=== PATIENT | female | born 1970 | race Caucasian/White ===

== ENCOUNTER → 2017-03-25 | Outpatient (CLI) | payer OTHER ==
[2017-03-25 09:21] LABS: BASO % 0.6 % (0.0-1.0); EOS # 0.1 10^3/uL (0.0-0.50); EOS % 2.6 % (0.0-3.0); HEMATOCRIT 42.3 % (36.0-47.0); HEMOGLOBIN 14.1 g/dl (12.0-16.0); IMMATURE GRANULOCYTE % 0.2 % (0-0); MEAN CORPUSCULAR HEMOGLOBIN 28.8 pg (27.0-33.0); MEAN CORPUSCULAR HGB CONC 33.3 g/dl (32.0-36.5); MEAN CORPUSCULAR VOLUME 86.3 fl (80.0-96.0); MONO # 0.3 10^3/uL (0.0-0.8); MONO % 5.8 % (0.0-5.0); NEUTROPHILS # 2.2 10^3/uL (1.8-7.7); NEUTROPHILS % 47.8 % (36.0-66.0); PLATELET COUNT, AUTOMATED 245 10^3/uL (150-450); RED CELL DISTRIBUTION WIDTH 13.7 % (11.5-14.5); WHITE BLOOD COUNT 4.7 10^3/uL (4.0-10.0)
[2017-03-25 09:56] LABS: ALBUMIN/GLOBULIN RATIO 1.29 (1.00-1.93); ALKALINE PHOSPHATASE 44 U/L (45-117); ALT/SGPT 18 U/L (12-78); ANION GAP 6 MEQ/L (8-16); AST/SGOT 15 U/L (7-37); BILIRUBIN,TOTAL 1.5 MG/DL (0.2-1.0); BLOOD UREA NITROGEN 12 MG/DL (7-18); CALCIUM LEVEL 8.6 MG/DL (8.5-10.1); CARBON DIOXIDE LEVEL 29 MEQ/L (21-32); CHLORIDE LEVEL 108 MEQ/L (98-107); CHOLESTEROL LEVEL 252 MG/DL (<200); CREATININE FOR GFR 0.75 MG/DL (0.55-1.02); GLOMERULAR FILTRATION RATE > 60.0 (>58); GLUCOSE, FASTING 83 MG/DL (70-100); HDL CHOLESTEROL 75 MG/DL (>40); LDL CHOLESTEROL 150.4 MG/DL (<100); NON-HDL-C 177 MG/DL; POTASSIUM SERUM 4.6 MEQ/L (3.5-5.1); SODIUM LEVEL 143 MEQ/L (136-145); TOTAL PROTEIN 7.1 GM/DL (6.4-8.2); TRIGLYCERIDES LEVEL 133 MG/DL (<150)
== END ==
LOC: M LAB 08:25
DX: I10 Essential (primary) hypertension (principal)
CPT/HCPCS: 84443

== ENCOUNTER → 2017-07-10 | Outpatient (CLI) | payer OTHER | LOC: M WHC 14:02 | DX: Z12.31 Encounter for screening mammogram for malignant neoplasm of breast (principal) | CPT/HCPCS: 77067 ==

== ENCOUNTER → 2017-07-10 | Outpatient (REF) | payer OTHER | LOC: M SFHCWAGY 14:32 | DX: Z12.4 Encounter for screening for malignant neoplasm of cervix (principal) | CPT/HCPCS: G0123 ==

== ENCOUNTER → 2018-04-10 | Outpatient (CLI) | payer OTHER ==
[2018-04-10 09:59] LABS: BASO % 0.8 % (0.0-1.0); EOS # 0.2 10^3/uL (0.0-0.50); HEMATOCRIT 42.6 % (36.0-47.0); LYMPH # 2.2 10^3/uL (1.5-4.5); LYMPH % 44.1 % (24.0-44.0); MEAN CORPUSCULAR HGB CONC 32.9 g/dl (32.0-36.5); MEAN CORPUSCULAR VOLUME 88.2 fl (80.0-96.0); MONO # 0.3 10^3/uL (0.0-0.8); MONO % 5.5 % (0.0-5.0); NEUTROPHILS # 2.4 10^3/uL (1.8-7.7); NEUTROPHILS % 46.4 % (36.0-66.0); PLATELET COUNT, AUTOMATED 243 10^3/uL (150-450); RED BLOOD COUNT 4.83 10^6/uL (4.00-5.40); WHITE BLOOD COUNT 5.1 10^3/uL (4.0-10.0)
[2018-04-10 10:31] LABS: BLOOD UREA NITROGEN 16 MG/DL (7-18); CALCIUM LEVEL 9.1 MG/DL (8.5-10.1); CARBON DIOXIDE LEVEL 29 MEQ/L (21-32); CHLORIDE LEVEL 108 MEQ/L (98-107); CREATININE FOR GFR 0.76 MG/DL (0.55-1.30); GLOMERULAR FILTRATION RATE > 60.0 (>58); GLUCOSE, FASTING 88 MG/DL (70-100); POTASSIUM SERUM 4.7 MEQ/L (3.5-5.1); SODIUM LEVEL 143 MEQ/L (136-145); THYROID STIMULATING HORMONE 0.864 uIU/ML (0.358-3.740)
== END ==
LOC: M LAB 08:26
PROVIDERS: ATTEND Physician Assistant
DX: R63.5 Abnormal weight gain (principal)

== ENCOUNTER → 2018-07-12 | Outpatient (CLI) | payer OTHER ==
--- NOTE | 2018-07-12 14:59 | REPMRS ---
Patient History The patient states she had a clinical breast exam in 06/2018. No known family history of cancer. Digital Woman Screen Mammo: July 12, 2018 - Exam #: [id number] Bilateral CC and MLO view(s) were taken. Technologist: Nevaeh Lopez, Technologist Prior study comparison: July 10, 2017, digital woman screen mammo performed at [facility]. January 03, 2016, digital woman screen mammo performed at [facility]. April 10, 2014, digital woman screen mammo performed at [facility]. FINDINGS: There are scattered fibroglandular densities. There has been no change in the appearance of the mammogram from the prior studies. There is a mild amount of scattered fibroglandular density which is fairly symmetric. There is no interval development of dominant mass, architectural distortion, or clustered microcalcification suggestive of malignancy. 3-D tomosynthesis shows no additional findings. Assessment: BI-RADS/ACR category 1 mammogram. Negative Mammogram. Recommendation Routine screening mammogram of both breasts in 1 year (for women over age 40). This patient's Lifetime Breast Cancer RIsk is estimated at 9.1 %. This mammogram was interpreted with the aid of an FDA-approved computer-aided dectection system. Electronically Signed By: Theo Gr MD 07/12/18 [id number]
== END ==
LOC: M WHC 13:14
PROVIDERS: ATTEND Nurse Practitioner Family
DX: Z12.31 Encounter for screening mammogram for malignant neoplasm of breast (principal)

== ENCOUNTER → 2019-09-14 | Outpatient (CLI) | payer OTHER ==
[2019-09-14 07:20] LABS: BASO % 0.6 % (0.0-1.0); EOS # 0.1 10^3/uL (0.0-0.5); EOS % 2.4 % (0.0-3.0); HEMATOCRIT 42.1 % (36.0-47.0); HEMOGLOBIN 13.9 g/dl (12.0-15.5); LYMPH # 2.4 10^3/uL (1.5-5.0); LYMPH % 45.2 % (24.0-44.0); MEAN CORPUSCULAR HEMOGLOBIN 29.7 pg (27.0-33.0); MONO # 0.3 10^3/uL (0.0-0.8); MONO % 6.4 % (0.0-5.0); NEUTROPHILS # 2.4 10^3/uL (1.5-8.5); NEUTROPHILS % 45.2 % (36.0-66.0); PLATELET COUNT, AUTOMATED 238 10^3/uL (150-450); RED BLOOD COUNT 4.68 10^6/uL (4.00-5.40); WHITE BLOOD COUNT 5.3 10^3/uL (4.0-10.0)
[2019-09-14 07:53] LABS: ALBUMIN 3.9 GM/DL (3.2-5.2); ALT/SGPT 49 U/L (12-78); BILIRUBIN,TOTAL 1.2 MG/DL (0.2-1.0); BLOOD UREA NITROGEN 11 MG/DL (7-18); CALCIUM LEVEL 9.2 MG/DL (8.5-10.1); CARBON DIOXIDE LEVEL 28 MEQ/L (21-32); CHLORIDE LEVEL 108 MEQ/L (98-107); CHOLESTEROL LEVEL 214 MG/DL (<200); CREATININE FOR GFR 0.76 MG/DL (0.55-1.30); FREE T4 0.82 NG/DL (0.76-1.46); GLOMERULAR FILTRATION RATE > 60.0 (>58); GLUCOSE, FASTING 98 MG/DL (70-100); HDL CHOLESTEROL 50 MG/DL (>40); LDL CHOLESTEROL 129 MG/DL (<100); NON-HDL-C 164 MG/DL; POTASSIUM SERUM 4.9 MEQ/L (3.5-5.1); SODIUM LEVEL 140 MEQ/L (136-145); TRIGLYCERIDES LEVEL 177 MG/DL (<150)
[2019-09-14 11:08] LABS: TOTAL 25(OH) VITAMIN D 31.7 NG/ML (30.0-100.0)
== END ==
LOC: M LAB 06:33
PROVIDERS: ATTEND Nurse Practitioner Family
DX: N95.1 Menopausal and female climacteric states (principal)

== ENCOUNTER → 2020-03-30 | Outpatient (CLI) | payer OTHER ==
[~2020-03-30] MED LIST: D3 H10002 PO; FLUO10CA16 PO; LISI10TA4 PO; MIRA3350 PO
== END ==
LOC: M LABSMTC 11:22
PROVIDERS: ATTEND Anesthesiology
DX: Z01.812 Encounter for preprocedural laboratory examination (principal); Z20.822 Contact with and (suspected) exposure to COVID-19

== ENCOUNTER 2020-04-04 08:56 | Day surgery (SDC) | payer OTHER ==
[~2020-04-04] VITALS: Ht 157.5 cm; Wt 76.2 kg
[~2020-04-04 08:56] MED LIST changes: +NS 1,000 ML IV ONE
--- OUTSIDE RECORDS SUMMARY | 2020-04-04 09:03 | CCD ---
Author Author [facility] Organization [facility] Address Unknown Phone Unavailable Care Team Providers Care Arc Welder Name Role Phone Jc Jay MD Unavailable Unavailable Jc Jay MD Unavailable Unavailable Jc Jay MD Unavailable Unavailable Jc Jay MD Unavailable Unavailable Jc Jay MD Unavailable Unavailable Jc Jay MD Unavailable Unavailable Jc Jay MD Unavailable Unavailable Jc Jay MD Unavailable Unavailable Jc Jay MD Unavailable Unavailable Jc Jay MD Unavailable Unavailable Jc Jay MD Unavailable Unavailable Jc Jay MD Unavailable Unavailable Heitner, Jc Corrigan MD Unavailable Unavailable Heitner, Jc Corrigan MD Unavailable Unavailable Heitner, Jc Corrigan MD Unavailable Unavailable Heitner, Jc Corrigan MD Unavailable Unavailable Heitner, Jc Corrigan MD Unavailable Unavailable Heitner, Jc Corrigan MD Unavailable Unavailable Heitner, Jc Corrigan MD Unavailable Unavailable Heitner, Jc Corrigan MD Unavailable Unavailable Heitner, Jc Corrigan MD Unavailable Unavailable Heitner, Jc Corrigan MD Unavailable Unavailable Heitner, Jc Corrigan MD Unavailable Unavailable Heitner, Jc Corrigan MD Unavailable Unavailable Heitner, Jc Corrigan MD Unavailable Unavailable Pleskach, Margarita SIGNALING DESIGN ENGINEER Unavailable Unavailable Pleskach, Margarita SIGNALING DESIGN ENGINEER Unavailable Unavailable Pleskach, Margarita SIGNALING DESIGN ENGINEER Unavailable Unavailable Pleskach, Margarita SIGNALING DESIGN ENGINEER Unavailable Unavailable Pleskach, Margarita SIGNALING DESIGN ENGINEER Unavailable Unavailable Pleskach, Margarita SIGNALING DESIGN ENGINEER Unavailable Unavailable Pleskach, Margarita SIGNALING DESIGN ENGINEER Unavailable Unavailable Pleskach, Margarita SIGNALING DESIGN ENGINEER Unavailable Unavailable Pleskach, Margarita SIGNALING DESIGN ENGINEER Unavailable Unavailable Pleskach, Margarita SIGNALING DESIGN ENGINEER Unavailable Unavailable Pleskach, Margarita SIGNALING DESIGN ENGINEER Unavailable Unavailable Pleskach, Margarita SIGNALING DESIGN ENGINEER Unavailable Unavailable Pleskach, Margarita SIGNALING DESIGN ENGINEER Unavailable Unavailable Pleskach, Margarita SIGNALING DESIGN ENGINEER Unavailable Unavailable Pleskach, Margarita SIGNALING DESIGN ENGINEER Unavailable Unavailable Pleskach, Margarita SIGNALING DESIGN ENGINEER Unavailable Unavailable Pleskach, Margarita SIGNALING DESIGN ENGINEER Unavailable Unavailable Pleskach, Margarita SIGNALING DESIGN ENGINEER Unavailable Unavailable Pleskach, Margarita SIGNALING DESIGN ENGINEER Unavailable Unavailable Pleskach, Margarita SIGNALING DESIGN ENGINEER Unavailable Unavailable Pleskach, Margarita SIGNALING DESIGN ENGINEER Unavailable Unavailable Pleskach, Margarita SIGNALING DESIGN ENGINEER Unavailable Unavailable Pleskach, Margarita SIGNALING DESIGN ENGINEER Unavailable Unavailable Pleskach, Margarita SIGNALING DESIGN ENGINEER Unavailable Unavailable Pleskach, Margarita SIGNALING DESIGN ENGINEER Unavailable Unavailable Pleskach, Margarita SIGNALING DESIGN ENGINEER Unavailable Unavailable Pleskach, Margarita SIGNALING DESIGN ENGINEER Unavailable Unavailable Pleskach, Margarita SIGNALING DESIGN ENGINEER Unavailable Unavailable Pleskach, Margarita SIGNALING DESIGN ENGINEER Unavailable Unavailable Petrancosta, Delta Codi PA-C Unavailable Unavailabl e Petrancosta, Delta Codi PA-C Unavailable Unavailabl e Petrancosta, Delta Codi PA-C Unavailable Unavailabl e Petrancosta, Delta Codi PA-C Unavailable Unavailabl e Petrancosta, Delta Codi PA-C Unavailable Unavailabl e Petrancosta, Juarez Codi PA-C Unavailable Unavailabl e Petrancosta, Juarez Codi PA-C Unavailable Unavailabl e Petrancosta, Delta Codi PA-C Unavailable Unavailabl e Petrancosta, Delta Codi PA-C Unavailable Unavailabl e Petrancosta, Delta Codi PA-C Unavailable Unavailabl e Petrancosta, Delta Codi PA-C Unavailable Unavailabl e Petrancosta, Delta Codi PA-C Unavailable Unavailabl e Petrancosta, Delta Codi PA-C Unavailable Unavailabl e Petrancosta, Delta Codi PA-C Unavailable Unavailabl e Petrancosta, Delta Codi PA-C Unavailable Unavailabl e Petrancosta, Delta Codi PA-C Unavailable Unavailabl e Petrancosta, Delta Codi PA-C Unavailable Unavailabl e Petrancosta, Delta Codi PA-C Unavailable Unavailabl e Petrancosta, Juarez Codi PA-C Unavailable Unavailabl e Petrancosta, Juarez Codi PA-C Unavailable Unavailabl e Petrancosta, Juarez Codi PA-C Unavailable Unavailabl e Petrancosta, Juarez Codi PA-C Unavailable Unavailabl e Petrancosta, Juarez Codi PA-C Unavailable Unavailabl e Re-disclosure Warning The records that you are about to access may contain information from federally-assisted alcohol or drug abuse programs. If such information is present, then the following federally mandated warning applies: This information has been disclosed to you from records protected by federal confidentiality rules (42 CFR part 2). The federal rules prohibit you from making any further disclosure of this information unless further disclosure is expressly permitted by the written consent of the person to whom it pertains or as otherwise permitted by 42 CFR part 2. A general authorization for the release of medical or other information is NOT sufficient for this purpose. The Federal rules restrict any use of the information to criminally investigate or prosecute any alcohol or drug abuse patient.The records that you are about to access may contain highly sensitive health information, the redisclosure of which is protected by Article 27-F of the [facility] Public Health law. If you continue you may have access to information: Regarding HIV / AIDS; Provided by facilities licensed or operated by the [facility] Office of Mental Health; or Provided by the [facility] Office for People With Developmental Disabilities. If such information is present, then the following [facility] mandated warning applies: This information has been disclosed to you from confidential records which are protected by state law. State law prohibits you from making any further disclosure of this information without the specific written consent of the person to whom it pertains, or as otherwise permitted by law. Any unauthorized further disclosure in violation of state law may result in a fine or senior care sentence or both. A general authorization for the release of medical or other information is NOT sufficient authorization for further disc losure. Family History Family Member Name Family Member Gender Family Member Status Date o f Status Description Data Source(s) Unknown Unknown Problem [facility] ([facility] Encounters Encounter Providers Location Date Indications Data Source(s ) Outpatient Attender: Margarita Michaud [facility] Main Office 03/14/2020 0 7:30:00 AM EST [facility] ([facility] Outpatient Attender: Margarita Michaud [facility] Main Office 09/12/2019 0 8:15:00 AM EDT [facility] ([facility] OFFICE OUTPATIENT NEW 30 MINUTES Attender: Shekhar Jay MD Phy sical Therapy 08/05/2019 03:00:00 PM EDT [facility] ([facility]) Outpatient Attender: Margarita Michaud [facility] Main Office 08/05/2019 0 8:00:00 AM EDT [facility] ([facility] Outpatient Attender: Margarita Michaud [facility] Main Office 05/20/2019 0 9:45:00 AM EDT [facility] ([facility] Outpatient Attender: Codi Wang PA-C Main Office 04/20/2019 09:15:00 AM EST [facility] ([facility] Medications Medication Brand Name Start Date Product Form Dose Route Admi nistrative Instructions Pharmacy Instructions Status Indications Reaction Description Data Source(s) Naproxen 500 MG Oral Tablet Naproxen 08/05/2019 12:00:00 AM EDT ORAL completed [facility] ([facility] Fluoxetine 10 MG Oral Capsule Fluoxetine HCL 04/20/2019 12:00:[address] ORAL active [facility] ([facility] Insurance Providers Payer name Policy type / Coverage type Policy ID Covered republican ID Covered republican's relationship to nick Policy Nick Plan Information R [facility] [id number] SP [id number] SELF PAY ONLY [id number] SP [id number] ANSI-Commercial [id number] [facility] Commercial [id number] Self [id number] [facility] [id number] SP [id number] [facility] Commercial [id number] Self [id number] [employer] Commercial [id number] Self [id number] [employer] Commercial [id number] Self [id number] [employer] [id number] SP [id number] [employer] [id number] SP [id number] [employer] Commercial [id number] Self [id number] [employer] Commercial [id number] Self [id number] [employer] Commercial [id number] Self [id number] [employer] Commercial [id number] Self [id number] [employer] Commercial [id number] Self [id number] [employer] Commercial [id number] Self [id number] [employer] Commercial [id number] Self [id number] [employer] PPO O [id number] S [id number] [facility] EMP) O [id number] P [id number] [employer] O [id number] P [id number] [employer] [id number] SP [id number] [facility] [id number] BCBS [place] DIV [id number] [facility] Medigap Part B Family Depend ent [employer] Commercial Self [employer] BLUE CROSS BLUE SHIELD - OP [id number] [facility]/P [id number] Problems, Conditions, and Diagnoses Code Display Name Description Problem Type Effective Dates Data Source(s) [id number] Essential hypertension Essential hypertension Problem 08/08/2019 12:00:00 AM EDT [facility] ([facility]) Surgeries/Procedures Procedure Description Date Indications Data Source(s) RADIOLOGIC EXAM KNEE COMPLETE 4/MORE VIEWS 08/05/2019 12:00:00 AM EDT [facility] ([facility]) Results ID Date Data Source [id number] 03/30/2020 12:00:00 PM EST [facility] Name Value Range Interpretation Code Description Data Nanda rce(s) Supporting Document(s) SARS coronavirus [address] [facility] [place] This lab was ordered by [facility] and reported by [facility]. ID Date Data Source [id number] 03/10/2020 09:55:00 AM EST [facility] Name Value Range Interpretation Code Description Data Nanda rce(s) Supporting Document(s) SARS coronavirus [address] [facility] [place] This lab was ordered by [facility] and rep orted by [facility]. ID Date Data Source [id number] 09/14/2019 06:47:00 AM EDT [facility] ([facility] Name Value Range Interpretation Code Description Data Nanda rce(s) Supporting Document(s) Thyroid Stimulating Hormone 1.350 uIU/ML 0.358-3.740 [facility] ([facility] Free T4 0.82 ng/dL 0.76-1.46 [facility] ([facility] ID Date Data Source [id number] 09/14/2019 06:47:00 AM EDT [facility] ([facility] Name Value Range Interpretation Code Description Data Nanda rce(s) Supporting Document(s) Calcidiol [Mass/volume] in Serum or Plasma 31.7 ng/mL 30.0-100.0 [facility] ([facility] ID Date Data Source [id number] 09/14/2019 06:47:00 AM EDT [facility] ([facility] Name Value Range Interpretation Code Description Data Nanda rce(s) Supporting Document(s) Triglycerides Level 177 mg/dL [facility] ([facility] Cholesterol Level 214 mg/dL [facility] ([facility] HDL Cholesterol 50 mg/dL [facility] ([facility] Cholesterol Risk Ratio 4.280 [facility] ([facility] LDL Cholesterol 129 mg/dL [facility] ([facility] Non-HDL-C 164 mg/dL [facility] ([facility] ID Date Data Source [id number] 09/14/2019 06:47:00 AM EDT [facility] ([facility] Name Value Range Interpretation Code Description Data Nanda rce(s) Supporting Document(s) Glucose, Fasting 98 mg/dL 70-100 [facility] ([facility] Creatinine For GFR 0.76 mg/dL 0.55-1.30 [facility] ([facility] Blood Urea Nitrogen 11 mg/dL 7-18 [facility] ([facility] Glomerular Filtration Rate Laboratory test result [facility] ([facility] <content>Units are mL/min/1.73 m2</content>
<content></content>
<content>Chronic Kidney Disease Staging per NKF:</content>
<content></content>
<content>Stage I & II GFR >=60 Normal to Mildly Decreased</content>
<content>Stage III GFR 30- 59 Moderately Decreased</content>
<content>Stage IV GFR 15-29 Severely Decreased</content>
<content>Stage V GFR <15 Very Little GFR Left</content>
<content>ESRD GFR <15 on PLANER TAILER</content>
<content></content> Potassium Serum 4.9 meq/L 3.5-5.1 [facility] ([facility] Sodium Level 140 meq/L 136-145 [facility] ([facility] Anion Gap 4 meq/L 8-16 [facility] ([facility] Chloride Level 108 meq/L 98-107 [facility] ([facility] Carbon Dioxide Level 28 meq/L 21-32 [facility] ([facility] Alt/SGPT 49 U/L 12-78 [facility] ([facility] Calcium Level 9.2 mg/dL 8.5-10.1 [facility] ([facility] Ast/Sgot 23 U/L 7-37 [facility] ([facility] Bilirubin,Total 1.2 mg/dL 0.2-1.0 [facility] ([facility] Alkaline Phosphatase 49 U/L 45-117 [facility] ([facility] Total Protein 7.0 GM/DL 6.4-8.2 [facility] ([facility] Albumin 3.9 GM/DL 3.2-5.2 [facility] ([facility] Albumin/Globulin Ratio 1.3 1.2-2.2 [facility] ([facility] ID Date Data Source [id number] 09/14/2019 06:47:00 AM EDT [facility] ([facility] Name Value Range Interpretation Code Description Data Nanda e(s) Supporting Document(s) White Blood Count 5.3 10 4.0-10.0 [facility] ([facility] Red Blood Count 4.68 10 4.00-5.40 [facility] ([facility] Hemoglobin 13.9 g/dL 12.0-15.5 [facility] ([facility] Hematocrit 42.1 % 36.0-47.0 [facility] ([facility] Mean Corpuscular Hemoglobin 29.7 pg 27.0-33.0 [facility] ([facility] Mean Corpuscular Volume 90.0 fl 80.0-96.0 M [facility] ([facility] Mean Corpuscular HGB Conc 33.0 g/dL 32.0-36.5 [facility] ([facility] Platelet Count, Automated 238 10 150-450 [facility] ([facility] Red Cell Distribution Width 13.0 % 11.5-14.5 [facility] ([facility] Neutrophils % 45.2 % 36.0-66.0 [facility] ([facility] Lymph % 45.2 % 24.0-44.0 [facility] Cass % 6.4 % 0.0-5.0 [facility] Eos % 2.4 % 0.0-3.0 [facility] Immature Granulocyte % 0.2 % 0-3.0 [facility] ([facility] Baso % 0.6 % 0.0-1.0 [facility] ([facility] Nucleated Red Blood Cell % 0.0 % 0-0 [facility] ([facility] Neutrophils # 2.4 10 1.5-8.5 [facility] ([facility] Cass # 0.3 10 0.0-0.8 [facility] ([facility] Lymph # 2.4 10 1.5-5.0 [facility] ([facility] Baso # 0.0 10 0.0-0.2 [facility] ([facility] Eos # 0.1 10 0.0-0.5 [facility] ([facility] Procedure Social History Code Duration Value Status Description Data Source(s ) Smoking 03/14/2020 12:00:00 AM EST Patient has never smoked co mpleted Patient has never smoked [facility] ([facility] Vital Signs ID Date Data Source UNK Name Value Range Interpretation Code Description Data Source(s) Body surface area Derived from formula 1.17 m2 1.17 m2 [facility] ([facility]) Body weight 28.577 kg 28.577 kg [facility] ([facility]) [place] body weight 110 [lb_av] 110 [lb_av] [facility] T ([facility]) Body mass index (BMI) [Ratio] 11.5 kg/m2 11.5 k g/m2 [facility] ([facility]) Body weight 63.00 [lb_av] 63.00 [lb_av] [facility] ([facility]) Body height 62 [in_i] 62 [in_i] [facility] ([facility]) 5'2" Diastolic blood pressure 72 mm[Hg] 72 mm[Hg] [facility] ([facility]) Systolic blood pressure 132 mm[Hg] 132 mm[Hg] [facility] ([facility]) Body mass index (BMI) [Ratio] 30.1 kg/m2 30.1 k g/m2 [facility] ([facility] [place] body weight 115 [lb_av] 115 [lb_av] [facility] T ([facility] Oxygen saturation in Arterial blood by Pulse oximetry 97 % 97 % [facility] ([facility] Body weight 171.50 [lb_av] 171.50 [lb_av] [facility] ([facility] Body height 63.25 [in_i] 63.25 [in_i] [facility] ([facility] 5'3.25" Respiratory rate 16 /min 16 /min [facility] ( [facility] Body temperature 95.8 [degF] 95.8 [degF] [facility] ([facility] Heart rate 63 /min 63 /min [facility] ([facility] Diastolic blood pressure 78 mm[Hg] 78 mm[Hg] [facility] ([facility] Systolic blood pressure 118 mm[Hg] 118 mm[Hg] [facility] ([facility] Body mass index (BMI) [Ratio] 29.3 kg/m2 29.3 k g/m2 [facility] ([facility] [place] body weight 115 [lb_av] 115 [lb_av] [facility] T ([facility] Oxygen saturation in Arterial blood by Pulse oximetry 99 % 99 % [facility] ([facility] Body weight 165.25 [lb_av] 165.25 [lb_av] [facility] T ([facility] Body height 63 [in_i] 63 [in_i] [facility] ([facility] 5'3" Respiratory rate 16 /min 16 /min [facility] ( [facility] Body temperature 96.6 [degF] 96.6 [degF] [facility] ([facility] Heart rate 68 /min 68 /min [facility] ([facility] Diastolic blood pressure 81 mm[Hg] 81 mm[Hg] [facility] ([facility] Systolic blood pressure 127 mm[Hg] 127 mm[Hg] [facility] ([facility] Body mass index (BMI) [Ratio] 27.5 kg/m2 27.5 k g/m2 [facility] ([facility]) Body weight 155.00 [lb_av] 155.00 [lb_av] [facility] T ([facility]) Body height 63 [in_i] 63 [in_i] [facility] ([facility]) 5'3" Body temperature 97.5 [degF] 97.5 [degF] [facility] ([facility]) Body mass index (BMI) [Ratio] 29.0 kg/m2 29.0 k g/m2 [facility] ([facility] Oxygen saturation in Arterial blood by Pulse oximetry 98 % 98 % [facility] ([facility] Body weight 164.00 [lb_av] 164.00 [lb_av] [facility] T ([facility] Body height 63 [in_i] 63 [in_i] [facility] ([facility] 5'3" Respiratory rate 14 /min 14 /min [facility] ( [facility] Body temperature 98.2 [degF] 98.2 [degF] [facility] ([facility] Heart rate 63 /min 63 /min [facility] ([facility] Diastolic blood pressure 92 mm[Hg] 92 mm[Hg] [facility] ([facility] Systolic blood pressure 128 mm[Hg] 128 mm[Hg] [facility] ([facility] Diastolic blood pressure 92 mm[Hg] 92 mm[Hg] [facility] ([facility] Systolic blood pressure 120 mm[Hg] 120 mm[Hg] [facility] ([facility]
--- OUTSIDE RECORDS SUMMARY | 2020-04-04 09:03 | CCD | Continuity of Care Document ---
Author Author Lily [facility] Organization Unknown Address [address] [place] [address] Phone [phone] Care Team Providers Care Athletic Field Custodian Name Role Phone [facility] - Obstetrics & Gynecology AUTM [phone] [facility] General Surgery Practice - Surgery AUTM [phone] Problems Active Problems Provider Date Generalized abdominal pain Vanita Escalera M.D. Onset: 0 09/25/2010 Constipation Vanita Escalera M.D. Onset: 09/26/19 11 Social History Type Date Description Comments Sex Unknown Tobacco Use Start: Unknown Never Smoked Cigarettes Tobacco Use Start: Unknown Never Used Smokeless Tobacco ETOH Use Occasionally consumes alcohol Tobacco Use Start: Unknown Patient has never smoked Recreational Drug Use Denies Drug Use Smoking Status Reviewed: 03/14/20 Patient has never smoked Exercise Type/Frequency Exercises regularly Tattoo/Piercing None Sun Exposure Uses sunscreen Sun Exposure Does use tanning beds on occasio n Seat Belt/Car Seat Always uses seat belt Bike Helmet Always Smoke Alarms Yes Smoke Alarms Carbon Monoxide Detector: No Allergies, Adverse Reactions, Alerts Active Allergies Reaction Severity Comments Date Codeine jittery and agitated, heart races 01/06/2007 Talc hives 03/14/2020 Medications Active Medications SIG Qnty Indications Ordering Provide r Date Fluoxetine HCL 10mg Capsules take 1 capsule by mouth once daily 90caps F41.1 Margarita Michaud FNP 04/20/2019 Lisinopril 10mg Tablets 1 by mouth every day 90tabs I10 Margarita Michaud FNP 02/06/2017 Advil 200mg Capsules prn OTC Unknown Vitamin D-1000 Maximum Strength 25mcg (1000 Ut) Tablets daily Unknown Immunizations CPT Code Status Date Vaccine Lot # [id number] Given 09/05/2015 TB Intradermal Test [id number] 84150 Given 12/04/2014 Influenza Vaccination/preser vative free 55173 Given 10/25/2007 Adacel 11 Yrs or older C2997 AA Vital Signs Date Vital Result Comment 03/14/2020 9:00am BP Systolic 118 mmHg BP Diastolic 78 mmHg Heart Rate 63 /min Body Temperature 95.8 F Respiratory Rate 16 /min Height 63.25 inches 5'3.25" Weight 171.50 lb O2 % BldC Oximetry 97 % Peak Expiratory Flow Rate 351 Estimated Peak Flow Rate [place] Body Weight 115 lb BMI (Body Mass Index) 30.1 kg/m2 09/12/2019 8:33am BP Systolic 127 mmHg BP Diastolic 81 mmHg Heart Rate 68 /min Body Temperature 96.6 F Respiratory Rate 16 /min Height 63 inches 5'3" Weight 165.25 lb O2 % BldC Oximetry 99 % Peak Expiratory Flow Rate 351 Estimated Peak Flow Rate [place] Body Weight 115 lb BMI (Body Mass Index) 29.3 kg/m2 Results Description No Information Available Procedures Date Code Description Status 03/02/2018 [id number] Mammogram Completed 03/02/2010 [id number] Colonoscopy Completed Medical Devices Description No Information Available Encounters Type Date Location Provider Dx Diagnosis Office Visit 03/14/2020 8:30a Main Office Margarita Michaud FNP R19.4 Change in bowel habit I10 Essential (primary) hyperten erin F41.1 Generalized anxiety disorder N95.1 Menopausal and female climac teric states Z00.00 Encntr for general adult med ical exam w/o abnormal findings Assessments Date Code Description Provider 03/14/2020 R19.4 Change in bowel habit Margarita Michaud FNP 03/14/2020 I10 Essential (primary) hypertension Margarita Michaud FNP 03/14/2020 F41.1 Generalized anxiety disorder Margarita Lin FNP 03/14/2020 N95.1 Menopausal and female climacteri c states Margarita Michaud FNP 03/14/2020 Z00.00 Encounter for genera l adult medical examination without abnormal findings Margarita Michaud FNP Plan of Treatment Future Appointment(s):* 09/12/2020 8:00 am - Margarita Michaud FNP at Main Office 03/14/2020 - Margarita Michaud FNP* R19.4 Change in bowel habit* Comments:* refer for colonoscopy * Referral:* [facility], Surgery,General * I10 Essential (primary) hypertension* New Labs:* Comprehensive Metabolic Profil, Scheduled: 08/30/20 * Lipid Panel, Scheduled: 08/30/20 * TSH And T4 Free ([facility]), Scheduled: 08/30/20 * Comments:* controlled, continue current medications * Follow up:* 6 months, with labs * F41.1 Generalized anxiety disorder* Comments:* continue fluoxetine at current dose * N95.1 Menopausal and female climacteric states * Z00.00 Encounter for general adult medical examination without abnormal findings* Comments:* Health maintenance up to date. Overall doing well. CHARMAINE/PHQ 9/CAGE questionnaire reviewed. Discussed healthy lifestyle choices. Functional Status Functional Condition Comment Date Status Independent with all ADL's Activ e Bifocal glasses Active Independent with all IADL's Acti ve Mental Status Mental Condition Comment Date Status None Active Referrals Refer to Reason for Referral Status Appt Date [facility] pt needs colonoscop y, last one was 2010. change in bowel habits and gas/bloating Scheduled 03/22/[address] [place] [address], [address] [place], [place] [id number] [phone]
--- OUTSIDE RECORDS SUMMARY | 2020-04-04 09:03 | CCD | Continuity of Care Document ---
Author Author Lily AMAYA DO Organization Unknown Address [address], [address] [place] [address] Phone [phone] Care Team Providers Care Pipefitter Welder Name Role Phone Vanita Escalera M.D. AUTM [phone] Margarita Michaud N.P. AUTM [phone] Problems Description No Information Available Social History Type Date Description Comments Sex Unknown ETOH Use Never used alcohol Tobacco Use Start: Unknown Patient has never smoked Allergies, Adverse Reactions, Alerts Active Allergies Reaction Severity Comments Date Codeine 11/06/2009 Medications Active Medications SIG Qnty Indications Ordering Provide r Date Miralax 3350NF Powder use as instructed by dr salcedo (to be used for prep) 238gm 564.00 David hankins MD 10/28/2010 Vitamin D 1000Unit Capsules 1 tab po qd Unknown Lisinopril 10mg Tablets Take 1 Tablet By Mouth Once Daily Unknown Fluoxetine HCL 10mg Capsules Take 1 Capsule By Mouth Once Daily Unknown 00 Immunizations Description No Information Available Vital Signs Date Vital Result Comment 03/22/2020 12:57pm BP Systolic 132 mmHg BP Diastolic 72 mmHg Height 62 inches 5'2" Weight 63.00 lb BMI (Body Mass Index) 11.5 kg/m2 [place] Body Weight 110 lb Weight 28.577 kg BSA (Body Surface Area) 1.17 m2 10/28/2010 10:49am BP Systolic 140 mmHg BP Diastolic 93 mmHg Height 62 inches 5'2" Weight 155.00 lb BMI (Body Mass Index) 28.3 kg/m2 [place] Body Weight 110 lb Weight 70.308 kg Results Description No Information Available Procedures Description No Information Available Medical Devices Description No Information Available Encounters Description No Information Available Assessments Description No Information Available Plan of Treatment No Information Available Functional Status Description No Information Available Mental Status Description No Information Available Referrals Refer to Dr Reason for Referral Status Appt Date David Amaya D.O. COLONOSCOPY, CHANGE IN BOWEL HABITS Renate eduled 03/22/[address] [address] [phone]
--- OUTSIDE RECORDS SUMMARY | 2020-04-04 09:03 | CCD ---
Continuity of Care Document (CCD) Created on: 03/14/2020 AlconaLily lewis External Reference #: [id number] : 1970 Sex: Female Author Author Lily [facility] Organization Unknown Address [address] [place] [address] Phone [phone] Care Team Providers Care Medical Sales Associate Name Role Phone [facility] - Ob[facility]etrics & Gynecology AUTM [phone] Problems Active Problems Provider Date Generalized abdominal pain Vanita Escalera M.D. Onset: 0 09/25/2010 Constipation Vaniat Escalera M.D. Onset: 09/26/19 11 Social History [...] CPT Code Status Date Vaccine Lot # [id number] Given 09/05/2015 TB Intradermal Test [id number] Given 12/04/2014 Influenza Vaccination/preser vative free 98723 Given 10/25/2007 Adacel 11 Yrs or older C2997 AA Vital Signs Date Vital Result Comment 03/14/2020 9:00am BP Systolic 118 mmHg BP Diastolic 78 mmHg Heart Rate 63 /min Body Temperature 95.8 F Respiratory Rate 16 /min Height 63.25 inches 5'3.25" Weight 171.50 lb O2 % BldC Oximetry 97 % Peak Expiratory Flow Rate 351 Estimated Peak Flow Rate [place] Body Weight 115 lb BMI (Body Mass Index) 30.1 kg/m2 09/12/2019 8:33am BP Systolic 127 mmHg BP Diastolic 81 mmHg Heart Rate 68 /min Body Temperature 96.6 F Respiratory Rate 16 /min Height 63 inches 5'3" Weight 165.25 lb O2 % BldC Oximetry 99 % Peak Expiratory Flow Rate 351 Estimated Peak Flow Rate [place] Body Weight 115 lb BMI (Body Mass Index) 29.3 kg/m2 Results Test Acquired Date Facility Test Result H/L Range Note CBC With Differential 09/14/2019 [facility] [phone] White Blood Count 5.3 10 Normal 4.0-10.0 Red Blood Count 4.68 10 Normal 4.00-5.40 Hemoglobin 13.9 g/dL Normal 12.0-15.5 Hematocrit 42.1 % Normal 36.0-47.0 Mean Corpuscular Volume 90.0 fl Normal 80.0-96.0 Mean Corpuscular Hemoglobin 29.7 pg Normal 27.0-33.0 Mean Corpuscular HGB Conc 33.0 g/dL Normal 32.0-36.5 Red Cell Distribution Width 13.0 % Normal 11.5-14.5 Platelet Count, Automated 238 10 Normal 150-450 Neutrophils % 45.2 % Normal 36.0-66.0 Lymph % 45.2 % High 24.0-44.0 [place] % 6.4 % High 0.0-5.0 Eos % 2.4 % Normal 0.0-3.0 Baso % 0.6 % Normal 0.0-1.0 Immature Granulocyte % 0.2 % Normal 0-3.0 Nucleated Red Blood Cell % 0.0 % Normal 0-0 Neutrophils # 2.4 10 Normal 1.5-8.5 Lymph # 2.4 10 Normal 1.5-5.0 [place] # 0.3 10 Normal 0.0-0.8 Eos # 0.1 10 Normal 0.0-0.5 Baso # 0.0 10 Normal 0.0-0.2 Comprehensive Metabolic Profil 09/14/2019 [facility] [phone] Glucose, Fasting 98 mg/dL Normal 70-100 Blood Urea Nitrogen 11 mg/dL Normal 7-18 Creatinine For GFR 0.76 mg/dL Normal 0.55-1.30 Glomerular Filtration Rate > 60.0 Normal >58 1 Sodium Level 140 mEq/L Normal 136-145 Potassium Serum 4.9 mEq/L Normal 3.5-5.1 Chloride Level 108 mEq/L High 98-107 Carbon Dioxide Level 28 mEq/L Normal 21-32 Anion Gap 4 mEq/L Low 8-16 Calcium Level 9.2 mg/dL Normal 8.5-10.1 Ast/Sgot 23 U/L Normal 7-37 Alt/SGPT 49 U/L Normal 12-78 Alkaline Phosphatase 49 U/L Normal 45-117 Bilirubin,Total 1.2 mg/dL High 0.2-1.0 Total Protein 7.0 GM/DL Normal 6.4-8.2 Albumin 3.9 GM/DL Normal 3.2-5.2 Albumin/Globulin Ratio 1.3 Normal 1.2-2.2 Lipid Panel 09/14/2019 [facility] [phone] Triglycerides Level 177 mg/dL High <150 Cholesterol Level 214 mg/dL High <200 HDL Cholesterol 50 mg/dL Normal >40 LDL Cholesterol 129 mg/dL High <100 Non-HDL-C 164 mg/dL Normal Cholesterol Risk Ratio 4.280 Normal <5 Laboratory test finding 09/14/2019 [facility] [phone] Total 25(Oh) Vitamin D 31.7 NG/ML Normal 30.0-100. 0 FT4&TSH Panel 09/14/2019 [facility] nter [phone] Thyroid Stimulating Hormone 1.350 uIU/ML Normal 0. 358-3.740 Free T4 0.82 ng/dL Normal 0.76-1.46 1 Units are mL/min/1.73 m2 Chronic Kidney Disease Staging per NKF: Stage I & II GFR >=60 Normal to Mildly Decreased Stage III GFR 30-59 Moderately Decreased Stage IV GFR 15-29 Severely Decreased Stage V GFR <15 Very Little GFR Left ESRD GFR <15 on NURSERY WORKER Procedures Date Code Description Status 03/02/2018 [id number] Mammogram Completed 03/02/2010 [id number] Colonoscopy Completed Medical Devices Description No Information Available Encounters Description No Information Available Assessments Date Code Description Provider 03/14/2020 R19.4 [...] Margarita Michaud FNP* R19.4 Change in bowel habit * I10 Essential (primary) hypertension* New Labs:* Comprehensive Metabolic Profil, Scheduled: 08/30/20 * Lipid Panel, Scheduled: 08/30/20 * TSH And T4 Free ([facility]), Scheduled: 08/30/20 * Follow up:* 6 months, with labs * F41.1 Generalized anxiety disorder * N95.1 Menopausal and female climacteric states * Z00.00 Encounter for general adult medical examination without abnormal findings Functional Status Functional Condition Comment Date Status Independent with all ADL's Activ e Bifocal glasses Active Independent with all IADL's Acti ve Mental Status Mental Condition Comment Date Status None Active Referrals Description No Information Available
[2020-04-04] MEDS ORDERED: LIDOCAINE 2% 100MG/5ML SDV (FOR ANES.) As Ordered ONE (09:38)
[2020-04-04] MEDS ORDERED: propofoL 200 MG/20 ML VIAL As Ordered ONE ×2 (09:38→10:00)
--- NOTE | 2020-04-04 10:07 | ROOR ---
Patient Name: Lily Mckeon Procedure Date: 04/04/2020 9:30 AM Date of : 1970 Age: 49 Room: [facility] Gender: Female Note Status: Finalized Procedure: Colonoscopy Indications: High risk colon cancer surveillance: Personal history of colonic polyps Providers: DO Loretta Branham MD: Vanita Escalera MD Requesting Provider: Medicines: Propofol per Anesthesia Complications: No immediate complications. Procedure: Pre-Anesthesia Assessment: - Prior to the procedure, a History and Physical was performed, and patient medications and allergies were reviewed. The patient is competent. The risks and benefits of the procedure and the sedation options and risks were discussed with the patient. All questions were answered and informed consent was obtained. Patient identification and proposed procedure were verified by the physician, the nurse, the anesthesiologist and the debug technician in the endoscopy suite. Mental Status Examination: alert and oriented. Airway Examination: normal oropharyngeal airway and neck mobility. Respiratory Examination: clear to auscultation. CV Examination: normal. Prophylactic Antibiotics: The patient does not require prophylactic antibiotics. Prior Anticoagulants: The patient has taken no previous anticoagulant or antiplatelet agents. ASA Grade Assessment: II - A patient with mild systemic disease. After reviewing the risks and benefits, the patient was deemed in satisfactory condition to undergo the procedure. The anesthesia plan was to use monitored anesthesia care (MAC). Immediately prior to administration of medications, the patient was re-assessed for adequacy to receive sedatives. The heart rate, respiratory rate, oxygen saturations, blood pressure, adequacy of pulmonary ventilation, and response to care were monitored throughout the procedure. The physical status of the patient was re-assessed after the procedure. The Colonoscope was introduced through the anus and advanced to the cecum, identified by appendiceal orifice and ileocecal valve. The colonoscopy was performed without difficulty. The patient tolerated the procedure well. Findings: Non-bleeding internal hemorrhoids were found during retroflexion. The hemorrhoids were Grade II (internal hemorrhoids that prolapse but reduce spontaneously). Two hyperplastic polyps were found in the sigmoid colon and ascending colon. The polyps were 2 to 8 mm in size. These polyps were removed with a jumbo cold forceps. Resection and retrieval were complete. Estimated blood loss was minimal. Impression: - Non-bleeding internal hemorrhoids. - Two 2 to 8 mm polyps in the sigmoid colon and in the ascending colon, removed with a jumbo cold forceps. Resected and retrieved. Recommendation: - Patient has a contact number available for emergencies. The signs and symptoms of potential delayed complications were discussed with the patient. Return to normal activities tomorrow. Written discharge instructions were provided to the patient. - Repeat colonoscopy in 3 - 5 years for surveillance based on pathology results. - Return to my office PRN. - Await pathology results. - Telephone my office for pathology results in 1 week. Procedure Code(s): --- Professional --- 06460, Colonoscopy, flexible; with biopsy, single or multiple Diagnosis Code(s): --- Professional --- Z86.010, Personal history of colonic polyps K64.1, Second degree hemorrhoids K63.5, Polyp of colon CPT copyright 2019 [employer]. All rights reserved. The codes documented in this report are preliminary and upon systems mechanic review may be revised to meet current compliance requirements. David Amaya DO 04/04/2020 10:07:08 AM Electronically signed by David Amaya DO Number of Addenda: 0 Note Initiated On: 04/04/2020 9:30 AM Estimated Blood Loss: Estimated blood loss was minimal.
[2020-04-04 10:50] VITALS: BP 126/62
== END 2020-04-04 11:25 | disposition home or self-care (01) ==
LOC: M OPP 08:56
PROVIDERS: ATTEND Surgery
DX: Z12.11 Encounter for screening for malignant neoplasm of colon (principal); Z86.010 Personal history of colon polyps; D12.2 Benign neoplasm of ascending colon; D12.5 Benign neoplasm of sigmoid colon; K64.1 Second degree hemorrhoids; I10 Essential (primary) hypertension; K44.9 Diaphragmatic hernia without obstruction or gangrene; R12 Heartburn; M19.90 Unspecified osteoarthritis, unspecified site; F41.9 Anxiety disorder, unspecified; G43.909 Migraine, unspecified, not intractable, without status migrainosus; Z88.5 Allergy status to narcotic agent; Z91.040 Latex allergy status; Z79.899 Other long term (current) drug therapy

== ENCOUNTER → 2020-06-12 | Outpatient (CLI) | payer OTHER ==
[~2020-06-12] MED LIST changes: +LISI10TA22 PO; -LISI10TA4 PO; -NS 1,000 ML IV ONE
--- NOTE | 2020-06-12 11:31 | REPMRS ---
Patient History The patient states she had a clinical breast exam in May 2020. Family history of colorectal cancer at age 66 in maternal uncle, colorectal cancer at age 45 in maternal cousin. 3D TOMOSYNTHESIS WAS PERFORMED. [facility] lifetime risk for breast cancer is 9.0%. Volpara breast density b. Digital Woman Screen Mammo: June 12, 2020 - Exam #: [id number] Bilateral CC and MLO view(s) were taken. Technologist: Sherry Cristobal, Technologist Prior study comparison: July 12, 2018, bilateral digital woman screen mammo performed at [facility]. July 10, 2017, digital woman screen mammo performed at [facility]. FINDINGS: There are scattered fibroglandular densities. There has been no change in the appearance of the mammogram from the prior studies. There is a mild amount of residual fibroglandular tissue which is fairly symmetric. There is no interval development of dominant mass, architectural distortion, or clustered microcalcification suggestive of malignancy. Assessment: BI-RADS/ACR category 1 mammogram. Negative Mammogram. Recommendation Routine screening mammogram in 1 year (for women over age 40). This mammogram was interpreted with the aid of an FDA-approved computer-aided dectection system. Electronically Signed By: David Hopper MD 06/12/20 1249
== END ==
LOC: M WHC 09:47
PROVIDERS: ATTEND Nurse Practitioner Women's Health
DX: Z12.4 Encounter for screening for malignant neoplasm of cervix (principal); Z12.31 Encounter for screening mammogram for malignant neoplasm of breast
CPT/HCPCS: 77063; 77067; 87624; G0123

== ENCOUNTER → 2021-05-14 | Outpatient (CLI) | payer OTHER ==
[~2021-05-14] MED LIST changes: -FLUO10CA16 PO; +FLUO10CA18 PO
[2021-05-14 13:31] LABS: BASO % 0.2 % (0.0-1.0); EOS # 0.1 10^3/uL (0.0-0.5); EOS % 2.2 % (0.0-3.0); HEMATOCRIT 40.9 % (36.0-47.0); HEMOGLOBIN 13.9 g/dl (12.0-15.5); LYMPH # 2.4 10^3/uL (1.5-5.0); LYMPH % 42.9 % (24.0-44.0); MEAN CORPUSCULAR HEMOGLOBIN 29.3 pg (27.0-33.0); MEAN CORPUSCULAR VOLUME 86.1 fl (80.0-96.0); MONO # 0.2 10^3/uL (0.0-0.8); MONO % 3.8 % (2.0-8.0); NEUTROPHILS # 2.8 10^3/uL (1.5-8.5); NEUTROPHILS % 50.5 % (36.0-66.0); PLATELET COUNT, AUTOMATED 240 10^3/uL (150-450); RED BLOOD COUNT 4.75 10^6/uL (4.00-5.40); WHITE BLOOD COUNT 5.5 10^3/uL (4.0-10.0)
[2021-05-14 14:58] LABS: ALBUMIN 4.3 GM/DL (3.2-5.2); ALT/SGPT 81 U/L (12-78); BLOOD UREA NITROGEN 15 MG/DL (7-18); CALCIUM LEVEL 9.7 MG/DL (8.5-10.1); CARBON DIOXIDE LEVEL 28 MEQ/L (21-32); CHLORIDE LEVEL 109 MEQ/L (98-107); CHOLESTEROL LEVEL 214 MG/DL (<200); CHOLESTEROL RISK RATIO 4.553 (<5); CREATININE FOR GFR 0.81 MG/DL (0.55-1.30); GLOMERULAR FILTRATION RATE > 60.0 (>58); GLUCOSE, FASTING 120 MG/DL (70-100); HDL CHOLESTEROL 47 MG/DL (>40); LDL CHOLESTEROL 115 MG/DL (<100); NON-HDL-C 167 MG/DL; POTASSIUM SERUM 4.2 MEQ/L (3.5-5.1); SODIUM LEVEL 142 MEQ/L (136-145); TOTAL PROTEIN 7.3 GM/DL (6.4-8.2); TRIGLYCERIDES LEVEL 260 MG/DL (<150)
== END ==
LOC: M LAB 12:12
PROVIDERS: ATTEND Family Medicine
DX: I10 Essential (primary) hypertension (principal)

== ENCOUNTER → 2021-10-22 | Outpatient (CLI) | payer OTHER | LOC: M WHC 08:07 | PROVIDERS: ATTEND Family Medicine | DX: Z12.31 Encounter for screening mammogram for malignant neoplasm of breast (principal) ==

== ENCOUNTER → 2021-12-23 | Outpatient (REF) | payer OTHER | LOC: M LAB REF 16:52 | PROVIDERS: ATTEND Registered Nurse | DX: R39.15 Urgency of urination (principal) ==

== ENCOUNTER → 2021-12-24 | Outpatient (CLI) | payer OTHER ==
[2021-12-24 07:30] LABS: BASO % 0.8 % (0.0-1.0); EOS # 0.2 10^3/uL (0.0-0.5); EOS % 3.1 % (0.0-3.0); HEMATOCRIT 42.7 % (36.0-47.0); HEMOGLOBIN 14.1 g/dl (12.0-15.5); LYMPH # 2.3 10^3/uL (1.5-5.0); LYMPH % 43.2 % (24.0-44.0); MEAN CORPUSCULAR HEMOGLOBIN 29.5 pg (27.0-33.0); MEAN CORPUSCULAR VOLUME 89.3 fl (80.0-96.0); MONO # 0.3 10^3/uL (0.0-0.8); MONO % 4.8 % (2.0-8.0); NEUTROPHILS # 2.5 10^3/uL (1.5-8.5); NEUTROPHILS % 47.9 % (36.0-66.0); PLATELET COUNT, AUTOMATED 208 10^3/uL (150-450); RED BLOOD COUNT 4.78 10^6/uL (4.00-5.40); WHITE BLOOD COUNT 5.2 10^3/uL (4.0-10.0)
[2021-12-24 08:06] LABS: ALBUMIN 3.9 GM/DL (3.2-5.2); ALT/SGPT 81 U/L (12-78); BILIRUBIN,TOTAL 1.2 MG/DL (0.2-1.0); BLOOD UREA NITROGEN 15 MG/DL (7-18); C REACTIVE PROTEIN QUANTITATIV 0.51 MG/DL (0.00-0.30); CARBON DIOXIDE LEVEL 26 MEQ/L (21-32); CHLORIDE LEVEL 108 MEQ/L (98-107); GLOMERULAR FILTRATION RATE > 60.0 (>51); GLUCOSE, FASTING 105 MG/DL (70-100); MAGNESIUM LEVEL 2.4 MG/DL (1.8-2.4); POTASSIUM SERUM 4.5 MEQ/L (3.5-5.1); RHEUMATOID FACTOR QUANT < 10.0 IU/ML (<15.0); SODIUM LEVEL 138 MEQ/L (136-145); TOTAL PROTEIN 7.2 GM/DL (6.4-8.2)
[2021-12-24 09:51] LABS: ERYTHROCYTE SEDIMENTATION RATE 10 mm/hr (0-30)
[2021-12-24 09:57] LABS: VITAMIN B12 LEVEL 290 PG/ML (247-911)
== END ==
LOC: M LAB 06:23
PROVIDERS: ATTEND Registered Nurse
DX: M25.50 Pain in unspecified joint (principal)

== ENCOUNTER → 2021-12-25 | Outpatient (CLI) | payer OTHER ==
[2021-12-25 18:26] LABS: FREE T4 0.84 NG/DL (0.76-1.46); THYROID STIMULATING HORMONE 1.03 uIU/ML (0.358-3.740)
[2021-12-27 15:09] LABS: IgG P18 AB Absent (.); IgG P23 AB Absent (.); IgG P28 AB Absent (.); IgG P30 AB Absent (.); IgG P39 AB Absent (.); IgG P41 AB Present (.); IgG P45 AB Absent (.); IgG P66 AB Absent (.); IgG P93 AB Absent (.); IgM P23 AB Absent (.); IgM P39 AB Absent (.); IgM P41 AB Absent (.); LYME IgG WB INTERPRETATION Negative (.); LYME IgM WB INTERPRETATION Negative (.)
== END ==
LOC: M LAB 12:21
PROVIDERS: ATTEND Family Medicine
DX: M25.50 Pain in unspecified joint (principal)

== ENCOUNTER → 2022-03-20 | Outpatient (CLI) | payer OTHER ==
[2022-03-21 06:08] LABS: MUMPS VIRUS IgG ANTIBODY 13.3 AU/mL (Immune >10.9)
== END ==
LOC: M LAB 12:12
PROVIDERS: ATTEND Nurse Practitioner Family
DX: Z02.0 Encounter for examination for admission to educational institution (principal)

== ENCOUNTER → 2022-07-03 | Outpatient (CLI) | payer OTHER ==
[2022-07-03 15:44] LABS: APPEARANCE, URINE CLEAR (CLEAR); BACTERIA, URINE AUTO NEGATIVE (NEGATIVE); BILIRUBIN, URINE AUTO NEGATIVE (NEGATIVE); BLOOD, URINE BLOOD 1+ (NEGATIVE); COLOR, URINE COLORLESS (YELLOW); GLUCOSE, URINE (UA) AUTO NEGATIVE (NEGATIVE); KETONE, URINE AUTO NEGATIVE (NEGATIVE); LEUKOCYTE ESTERASE, URINE AUTO NEGATIVE (NEGATIVE); NITRITE, URINE AUTO NEGATIVE (NEGATIVE); PROTEIN, URINE AUTO NEGATIVE (NEGATIVE); RBC, URINE AUTO 0 /HPF (0-3); SPECIFIC GRAVITY URINE AUTO 1.002 (1.002-1.035); SQUAMOUS EPITHELIAL CELL UR AU 0 /HPF (0-6); UROBILINOGEN, URINE AUTO 0.2 mg/dL (0.0-2.0); WBC, URINE AUTO 0 /HPF (0-3)
[2022-07-03 15:47] LABS: BASO % 0.5 % (0.0-1.0); EOS # 0.1 10^3/uL (0.0-0.5); EOS % 1.3 % (0.0-3.0); HEMATOCRIT 43.6 % (36.0-47.0); HEMOGLOBIN 14.3 g/dl (12.0-15.5); LYMPH # 2.5 10^3/uL (1.5-5.0); LYMPH % 41.3 % (24.0-44.0); MEAN CORPUSCULAR HEMOGLOBIN 29.5 pg (27.0-33.0); MEAN CORPUSCULAR HGB CONC 32.8 g/dl (32.0-36.5); MEAN CORPUSCULAR VOLUME 90.1 fl (80.0-96.0); MONO # 0.3 10^3/uL (0.0-0.8); MONO % 4.6 % (2.0-8.0); NEUTROPHILS # 3.2 10^3/uL (1.5-8.5); PLATELET COUNT, AUTOMATED 226 10^3/uL (150-450); RED BLOOD COUNT 4.84 10^6/uL (4.00-5.40); WHITE BLOOD COUNT 6.2 10^3/uL (4.0-10.0)
[2022-07-03 16:13] LABS: ALKALINE PHOSPHATASE 63 U/L (46-116); ALT/SGPT 79 U/L (7.0-40); AST/SGOT 37 U/L (<34); BILIRUBIN,TOTAL 1.2 MG/DL (0.3-1.2); BLOOD UREA NITROGEN 15 MG/DL (9-23); CALCIUM LEVEL 9.7 MG/DL (8.5-10.1); CARBON DIOXIDE LEVEL 25 MMOL/L (20-31); CHLORIDE LEVEL 108 MMOL/L (98-107); CREATININE FOR GFR 0.82 MG/DL (0.55-1.30); GLOMERULAR FILTRATION RATE > 60.0 (>51); GLUCOSE, FASTING 109 MG/DL (60-100); POTASSIUM SERUM 4.2 MMOL/L (3.5-5.1); SODIUM LEVEL 140 MMOL/L (136-145); TOTAL PROTEIN 6.8 G/DL (5.7-8.2)
== END ==
LOC: M LAB 14:57
PROVIDERS: ATTEND Nurse Practitioner Family
DX: R30.0 Dysuria (principal); M54.50 Low back pain, unspecified

== ENCOUNTER → 2022-07-04 | Outpatient (CLI) | payer OTHER | LOC: M WHC 09:42 | PROVIDERS: ATTEND Nurse Practitioner Family | DX: N95.0 Postmenopausal bleeding (principal); N85.2 Hypertrophy of uterus ==

== ENCOUNTER → 2023-02-04 | Outpatient (CLI) | payer OTHER ==
[2023-02-04 14:08] LABS: BASO % 0.6 % (0.0-1.0); EOS # 0.1 10^3/uL (0.0-0.5); EOS % 1.2 % (0.0-3.0); HEMATOCRIT 43.6 % (36.0-47.0); HEMOGLOBIN 14.5 g/dl (12.0-15.5); LYMPH # 2.6 10^3/uL (1.5-5.0); LYMPH % 40.9 % (24.0-44.0); MEAN CORPUSCULAR HEMOGLOBIN 29.7 pg (27.0-33.0); MEAN CORPUSCULAR HGB CONC 33.3 g/dl (32.0-36.5); MEAN CORPUSCULAR VOLUME 89.2 fl (80.0-96.0); MONO # 0.3 10^3/uL (0.0-0.8); MONO % 5.3 % (2.0-8.0); NEUTROPHILS # 3.3 10^3/uL (1.5-8.5); NEUTROPHILS % 51.8 % (36.0-66.0); PLATELET COUNT, AUTOMATED 237 10^3/uL (150-450); RED BLOOD COUNT 4.89 10^6/uL (4.00-5.40); WHITE BLOOD COUNT 6.4 10^3/uL (4.0-10.0)
[2023-02-04 14:30] LABS: ALKALINE PHOSPHATASE 55 U/L (46-116); ALT/SGPT 72 U/L (7.0-40); AST/SGOT 31 U/L (<34); BILIRUBIN,TOTAL 1.3 MG/DL (0.3-1.2); BLOOD UREA NITROGEN 15 MG/DL (9-23); CALCIUM LEVEL 9.2 MG/DL (8.5-10.1); CARBON DIOXIDE LEVEL 27 MMOL/L (20-31); CHLORIDE LEVEL 106 MMOL/L (98-107); CHOLESTEROL LEVEL 211 MG/DL (<200); CHOLESTEROL RISK RATIO 4.38 (<5); CREATININE FOR GFR 0.69 MG/DL (0.55-1.30); GLOMERULAR FILTRATION RATE > 60.0 (>51); GLUCOSE, FASTING 83 MG/DL (60-100); HDL CHOLESTEROL 48.1 MG/DL (>40); LDL CHOLESTEROL 127.3 MG/DL (<100); NON-HDL-C 162.9 MG/DL; POTASSIUM SERUM 4.4 MMOL/L (3.5-5.1); SODIUM LEVEL 140 MMOL/L (136-145); TOTAL PROTEIN 6.9 G/DL (5.7-8.2); TRIGLYCERIDES LEVEL 178 MG/DL (<150)
== END ==
LOC: M LAB 13:04
PROVIDERS: ATTEND Nurse Practitioner Family
DX: I10 Essential (primary) hypertension (principal)

== ENCOUNTER → 2023-04-23 | Outpatient (REF) | payer OTHER | LOC: M SFHCWAGY 16:47 | PROVIDERS: ATTEND Nurse Practitioner Family | DX: R10.2 Pelvic and perineal pain (principal) ==

== ENCOUNTER → 2023-06-18 | Outpatient (CLI) | payer OTHER | LOC: M WHC 15:04 | PROVIDERS: ATTEND Obstetrics & Gynecology | DX: N95.0 Postmenopausal bleeding (principal) ==

== ENCOUNTER → 2023-08-25 | Outpatient (CLI) | payer OTHER ==
[~2023-08-25] MED LIST changes: +FLUO-290 PO; -FLUO10CA18 PO
== END ==
LOC: M WHC 11:15
PROVIDERS: ATTEND Obstetrics & Gynecology
DX: Z12.31 Encounter for screening mammogram for malignant neoplasm of breast (principal)

== ENCOUNTER → 2023-10-14 | Outpatient (CLI) | payer OTHER | LOC: M EKG 11:05 | PROVIDERS: ATTEND Anesthesiology | DX: Z01.818 Encounter for other preprocedural examination (principal); I10 Essential (primary) hypertension; K21.9 Gastro-esophageal reflux disease without esophagitis; K44.9 Diaphragmatic hernia without obstruction or gangrene; R00.1 Bradycardia, unspecified ==

== ENCOUNTER 2023-10-20 06:48 | Day surgery (SDC) | payer OTHER ==
[~2023-10-20] VITALS: Ht 160 cm; Wt 78.5 kg
[2023-10-20] MEDS ORDERED: LR 1,000 ML IV SCH (07:10)
[2023-10-20] MEDS ORDERED: MIDAZOLAM INJ 2MG/2ML VIAL As Ordered ONE (07:11)
[2023-10-20] MEDS ORDERED: fentaNYL 100 MCG/2 ML INJECTION As Ordered ONE (07:11)
[2023-10-20] MEDS ORDERED: ONDANSETRON 4MG 2ML VIAL As Ordered ONE (07:11)
[2023-10-20] MEDS ORDERED: METOCLOPRAMIDE INJ 10MG/2ML VIAL As Ordered ONE (07:11)
[2023-10-20] MEDS ORDERED: propofoL 200 MG/20 ML VIAL As Ordered ONE (07:12)
[2023-10-20] MEDS ORDERED: KETOROLAC 60MG 2ML VIAL As Ordered ONE (07:12)
[2023-10-20] MEDS ORDERED: ACETAMINOPHEN 1000MG 100ML IV BAG As Ordered ONE (07:12)
[2023-10-20] MEDS ORDERED: LIDOCAINE 2% 100MG/5ML SDV (FOR ANES.) As Ordered ONE (07:12)
[2023-10-20 07:24] LABS: HEMATOCRIT 44.8 % (36.0-47.0); HEMOGLOBIN 14.9 g/dl (12.0-15.5); MEAN CORPUSCULAR HEMOGLOBIN 29.6 pg (27.0-33.0); MEAN CORPUSCULAR HGB CONC 33.3 g/dl (32.0-36.5); MEAN CORPUSCULAR VOLUME 89.1 fl (80.0-96.0); PLATELET COUNT, AUTOMATED 232 10^3/uL (150-450); RED BLOOD COUNT 5.03 10^6/uL (4.00-5.40); WHITE BLOOD COUNT 5.5 10^3/uL (4.0-10.0)
[2023-10-20] MEDS: SCOPOLAMINE 1MG TRANSDERMAL PATCH TOP ONE (07:29)
[2023-10-20] MEDS ORDERED: ROCURONIUM BROMIDE 50MG/5ML VIAL As Ordered ONE (07:33)
[2023-10-20] MEDS ORDERED: SUGAMMADEX SODIUM 500 MG/5 ML VIAL (BRIDION) As Ordered ONE (07:33)
[2023-10-20] MEDS: SILVER NITRATE APPLICATOR (1 = QTY 10) As Ordered ONE (08:00)
[2023-10-20] MEDS ORDERED: ePHEDrine SULFATE 25 MG/5 ML(5MG/ML) SYRINGE As Ordered ONE (08:04)
[2023-10-20] MEDS ORDERED: fentaNYL 100 MCG/2 ML INJECTION IV PRN (08:30)
[2023-10-20] MEDS ORDERED: METOCLOPRAMIDE INJ 10MG/2ML VIAL IV PRN (08:45)
[2023-10-20] MEDS ORDERED: ACETAMINOPHEN 500 MG TAB PO PRN (08:45)
[2023-10-20] MEDS ORDERED: ONDANSETRON 4MG 2ML VIAL IV PRN (08:45)
[2023-10-20 09:30] VITALS: BP 118/75; TEMP 97.6; O2SAT 96
== END 2023-10-20 09:30 | disposition home or self-care (01) ==
LOC: M SDC 06:48
PROVIDERS: ATTEND Obstetrics & Gynecology
DX: N95.0 Postmenopausal bleeding (principal); I10 Essential (primary) hypertension; K44.9 Diaphragmatic hernia without obstruction or gangrene; Z79.899 Other long term (current) drug therapy; Z88.5 Allergy status to narcotic agent; Z91.048 Other nonmedicinal substance allergy status
CPT/HCPCS: 36415; 58558; 85027; 86850; 86900; 86901; 88305; J0131; J0665; J1100; J1885; J2250; J2405; J2765; J3010

== ENCOUNTER → 2023-10-30 | Outpatient (CLI) | payer OTHER ==
[2023-10-30 08:20] LABS: BASO % 0.6 % (0.0-1.0); EOS # 0.1 10^3/uL (0.0-0.5); EOS % 2.1 % (0.0-3.0); HEMOGLOBIN 14.3 g/dl (12.0-15.5); LYMPH # 2.7 10^3/uL (1.5-5.0); LYMPH % 50.5 % (24.0-44.0); MEAN CORPUSCULAR HEMOGLOBIN 29.8 pg (27.0-33.0); MEAN CORPUSCULAR HGB CONC 33.3 g/dl (32.0-36.5); MEAN CORPUSCULAR VOLUME 89.6 fl (80.0-96.0); MONO # 0.3 10^3/uL (0.0-0.8); MONO % 5.1 % (2.0-8.0); NEUTROPHILS # 2.2 10^3/uL (1.5-8.5); NEUTROPHILS % 41.5 % (36.0-66.0); PLATELET COUNT, AUTOMATED 240 10^3/uL (150-450); WHITE BLOOD COUNT 5.3 10^3/uL (4.0-10.0)
[2023-10-30 08:46] LABS: ALKALINE PHOSPHATASE 61 U/L (46-116); ALT/SGPT 78 U/L (7.0-40); AST/SGOT 30 U/L (<34); BILIRUBIN,TOTAL 1.6 MG/DL (0.3-1.2); BLOOD UREA NITROGEN 13 MG/DL (9-23); CALCIUM LEVEL 9.7 MG/DL (8.5-10.1); CARBON DIOXIDE LEVEL 27 MMOL/L (20-31); CHLORIDE LEVEL 111 MMOL/L (98-107); CHOLESTEROL LEVEL 223 MG/DL (<200); GLOMERULAR FILTRATION RATE > 60.0 (>51); GLUCOSE, FASTING 99 MG/DL (60-100); HDL CHOLESTEROL 39.1 MG/DL (>40); LDL CHOLESTEROL 146.1 MG/DL (<100); NON-HDL-C 183.9 MG/DL; POTASSIUM SERUM 4.3 MMOL/L (3.5-5.1); SODIUM LEVEL 143 MMOL/L (136-145); TOTAL PROTEIN 6.9 G/DL (5.7-8.2); TRIGLYCERIDES LEVEL 189 MG/DL (<150)
== END ==
LOC: M LAB 07:56
PROVIDERS: ATTEND Nurse Practitioner Family
DX: I10 Essential (primary) hypertension (principal)

== ENCOUNTER → 2024-06-24 | Outpatient (REF) | payer OTHER | LOC: M LAB REF 12:52 | PROVIDERS: ATTEND Nurse Practitioner Family | DX: N39.0 Urinary tract infection, site not specified (principal) ==

== ENCOUNTER → 2024-12-06 | Outpatient (REF) | payer OTHER | LOC: M LAB REF 16:41 | PROVIDERS: ATTEND Nurse Practitioner Family | DX: J06.9 Acute upper respiratory infection, unspecified (principal) ==

== ENCOUNTER → 2024-12-20 | Outpatient (CLI) | payer OTHER | LOC: M PLAIMG 15:01 | PROVIDERS: ATTEND Nurse Practitioner Family | DX: J06.9 Acute upper respiratory infection, unspecified (principal) ==

== ENCOUNTER → 2025-01-10 | Outpatient (CLI) | payer OTHER ==
[2025-01-10 09:25] LABS: BASO # 0.0 10^3/uL (0.0-0.2); BASO % 0.5 % (0.0-1.0); EOS # 0.2 10^3/uL (0.0-0.5); EOS % 3.6 % (0.0-3.0); LYMPH # 2.0 10^3/uL (1.5-5.0); LYMPH % 36.1 % (24.0-44.0); MONO # 0.3 10^3/uL (0.0-0.8); MONO % 4.9 % (2.0-8.0); NEUTROPHILS # 3.0 10^3/uL (1.5-8.5); NEUTROPHILS % 54.5 % (36.0-66.0); PLATELET COUNT, AUTOMATED 241 10^3/uL (150-450)
[2025-01-10 09:49] LABS: ALT/SGPT 48.0 U/L (7.0-40); AST/SGOT 28.0 U/L (<34); CALCIUM LEVEL 9.1 MG/DL (8.5-10.1); CARBON DIOXIDE LEVEL 26.0 MMOL/L (20-31); CHLORIDE LEVEL 109.0 MMOL/L (98-107); CHOLESTEROL LEVEL 225.0 MG/DL (<200); CHOLESTEROL RISK RATIO 5.1 (<5); CREATININE FOR GFR 0.81 MG/DL (0.55-1.30); GLOMERULAR FILTRATION RATE 86.8 (>51); LDL CHOLESTEROL 134.3 MG/DL (<100); NON-HDL-C 180.9 MG/DL; POTASSIUM SERUM 4.6 MMOL/L (3.5-5.1); SODIUM LEVEL 145.0 MMOL/L (136-145); TRIGLYCERIDES LEVEL 233.0 MG/DL (<150)
[2025-01-10 13:25] LABS: ESTIMATED AVERAGE GLUCOSE 120.0 MG/DL (60-110)
[2025-01-10 13:33] LABS: MAGNESIUM LEVEL 2.2 MG/DL (1.8-2.4)
[2025-01-10 13:38] LABS: FREE T4 0.96 NG/DL (0.89-1.76)
[2025-01-10 13:40] LABS: APPEARANCE, URINE CLEAR (CLEAR); BACTERIA, URINE AUTO NEGATIVE (NEGATIVE); BILIRUBIN, URINE AUTO NEGATIVE (NEGATIVE); BLOOD, URINE BLOOD 1+ (NEGATIVE); GLUCOSE, URINE (UA) AUTO NEGATIVE (NEGATIVE); KETONE, URINE AUTO NEGATIVE (NEGATIVE); LEUKOCYTE ESTERASE, URINE AUTO NEGATIVE (NEGATIVE); MUCUS, URINE SMALL (NEGATIVE); NITRITE, URINE AUTO NEGATIVE (NEGATIVE); PROTEIN, URINE AUTO NEGATIVE (NEGATIVE); RBC, URINE AUTO 0 /HPF (0-3); SPECIFIC GRAVITY URINE AUTO 1.018 (1.002-1.035); SQUAMOUS EPITHELIAL CELL UR AU 0 /HPF (0-6); UROBILINOGEN, URINE AUTO 0.2 mg/dL (0.0-2.0); WBC, URINE AUTO 0 /HPF (0-3)
== END ==
LOC: M LAB 08:44
PROVIDERS: ATTEND Nurse Practitioner Family
DX: I10 Essential (primary) hypertension (principal); R73.01 Impaired fasting glucose